=== PATIENT | female | born 1960 | race Caucasian/White ===

== ENCOUNTER 2017-09-25 13:41 | Emergency (ER) | payer OTHER ==
[~2017-09-25] VITALS: Ht 157.5 cm; Wt 86.0 kg
[2017-09-25 14:34] LABS: HEMATOCRIT 39.1 % (36.0-46.0); HEMOGLOBIN 13.3 G/DL (11.9-15.5); MCH 28.1 PG (29.0-34.0); MCV 82.5 FL (83-99); PLATELET COUNT 300 K/uL (156-360); RBC DIS.WIDTH-CV 14.5 % (11.8-14.6); RED BLOOD COUNT 4.74 M/uL (3.80-5.20); WHITE BLOOD COUNT 8.4 K/uL (4.1-10.2)
[2017-09-25 14:57] LABS: TROP-I INTERPRETATION NEGATIVE; TROPONIN-I < 0.01 ng/mL (0.0-0.30)
[2017-09-25 14:58] LABS: CHLORIDE 103 mEq/L (99-109)
[2017-09-25 14:59] LABS: POTASSIUM 4.3 mEq/L (3.7-5.4); SODIUM 138 mEq/L (136-147)
[2017-09-25 15:01] LABS: GLUCOSE 237 mg/dL (70-99); TOTAL PROTEIN 6.8 g/dL (6.4-8.3)
[2017-09-25 15:03] LABS: TOTAL BILIRUBIN 0.4 mg/dL (0.0-1.0)
[2017-09-25 15:04] LABS: ALKALINE PHOSPHATASE 61 IU/L (3-129)
[2017-09-25 15:05] LABS: CREATININE 0.8 mg/dL (0.6-1.3); GFR ESTIMATE (CALCULATED) > 59 mL/min/
[2017-09-25 15:06] LABS: AST (GOT) 45 IU/L (2-34); DIRECT BILIRUBIN 0.2 mg/dL (0.0-0.3); UREA NITROGEN (BUN) 12 mg/dL (9-23)
[2017-09-25 15:07] LABS: ALT (GPT) 60 IU/L (3-49)
[2017-09-25 15:08] LABS: LIPASE 63 U/L (1.0-51.0)
[2017-09-25] MEDS ORDERED: PEPCID20 MG PO (15:52)
[2017-09-25] MEDS ORDERED: PERCOCET 5/31 TABLET PO (15:52)
[2017-09-25 16:12] VITALS: BP 142/88
== END 2017-09-25 16:18 | disposition home or self-care (01) ==
LOC: EME 13:41
DX: R10.13 Epigastric pain (principal); R07.9 Chest pain, unspecified; R74.8 Abnormal levels of other serum enzymes; K44.9 Diaphragmatic hernia without obstruction or gangrene; Z90.49 Acquired absence of other specified parts of digestive tract; E11.9 Type 2 diabetes mellitus without complications; E78.5 Hyperlipidemia, unspecified; G47.30 Sleep apnea, unspecified; F43.10 Post-traumatic stress disorder, unspecified; E03.9 Hypothyroidism, unspecified; Z88.5 Allergy status to narcotic agent
CPT/HCPCS: 71046; 80048; 80076; 83690; 84484; 85027; 93005; 99281; 99284